=== PATIENT | male | born 1985 | race Caucasian/White ===

== ENCOUNTER 2018-12-13 19:34 | Inpatient (IN) | payer SELFPAY ==
[~2018-12-13] VITALS: Ht 172.7 cm; Wt 80.7 kg
[2018-12-13] MEDS ORDERED: LORAZEPAM 2MG/ML CPJ IV STA (22:21)
[2018-12-13] MEDS ORDERED: SODIUM CHLORIDE 0.9% 1000ML BAG (SEPSIS BOLUS) IV ONE (22:30)
[2018-12-13] MEDS ORDERED: FOLIC ACID 1 MG, THIAMINE HCL 100 MG, MVI, ADULT NO.1 10 ML in DEXTROSE 5% WATER 1,000 ML IV ONE ×4 (22:30)
[2018-12-14 00:31] LABS: CHLORIDE 111 mEq/L (98-107)
[2018-12-14 00:34] LABS: BASOPHILS % 0.6 % (0.0-2.0); EOSINOPHILS % 2.9 % (0.0-5.0); HEMATOCRIT. 40.4 % (42.0-52.0); HEMOGLOBIN. 13.7 g/dL (14.0-18.0); LYMPHOCYTES % 17.1 % (20.0-50.0); MEAN CORPUSCULAR HEMOGLOBIN 31.6 pg (28.0-32.0); MEAN PLATELET VOLUME 9.2 fl (7.4-10.4); MONOCYTES % 6.5 % (2.0-8.0); NEUTROPHILS % 72.9 % (40.0-76.0); PLATELET 141 x1000/uL (130-400); RED BLOOD CELL COUNT 4.35 mill/uL (4.7-6.1); RED CELL DISTRIBUTION WIDTH 13.4 % (11.6-14.6)
[2018-12-14 00:39] LABS: ETHANOL BLOOD < 10 mg/dL
[2018-12-14] MEDS ORDERED: DIVALPROEX SODIUM 250MG ER TABLET PO ONE (01:00)
[2018-12-14 03:30] VITALS: BP 122/67
[2018-12-14 04:00] VITALS: BP 113/69
[2018-12-14 06:00] VITALS: BP 112/72
[2018-12-14] MEDS ORDERED: LORAZEPAM 2MG/ML CPJ IV PRN (06:30)
[2018-12-14] MEDS ORDERED: ACETAMINOPHEN 325MG TABLET PO PRN (06:30)
[2018-12-14] MEDS ORDERED: GUAIFENESIN 200MG/10ML SUGAR FREE UDC PO PRN (06:30)
[2018-12-14] MEDS ORDERED: ONDANSETRON HCL 4MG/2ML INJ IV PRN (06:30)
[2018-12-14] MEDS ORDERED: HYDROMORPHONE HCL/PF 2MG/ML CPJ IV PRN (06:30)
[2018-12-14] MEDS ORDERED: MAGNESIUM/ALUMINUM HYDROXIDE/SIMETHICONE 30ML UDC PO PRN (06:30)
[2018-12-14] MEDS ORDERED: IPRATROPIUM/ALBUTEROL 0.5-3(2.5)MG/3ML NEB INH PRN (06:30)
[2018-12-14] MEDS ORDERED: HYDROCODONE/ACETAMINOPHEN 10/325MG TABLET PO PRN (06:30)
[2018-12-14] MEDS ORDERED: HYDRALAZINE 20MG/ML VIAL IV PRN (06:30)
[2018-12-14] MEDS ORDERED: NA PHOS,M-B/NA PHOS,DI-BA ENEMA 118ML PR PRN (06:30)
[2018-12-14] MEDS ORDERED: CLONIDINE 0.1MG TABLET PO PRN (06:30)
[2018-12-14] MEDS ORDERED: DIPHENHYDRAMINE 50MG/ML VIAL IV PRN (06:30)
[2018-12-14 08:00] VITALS: BP 118/65
[2018-12-14 08:05] LABS: CLARITY URINE CLEAR (CLEAR); COLOR URINE YELLOW (YELLOW); KETONES URINE NEGATIVE (NEGATIVE); LEUKOCYTE ESTERASE URINE 1+ (NEGATIVE); NITRITE URINE NEGATIVE (NEGATIVE); OCCULT BLOOD URINE NEGATIVE (NEGATIVE); PROTEIN URINE NEGATIVE (NEGATIVE); SPECIFIC GRAVITY URINE 1.017 (1.005-1.030); UROBILINOGEN URINE 0.2 E.U./dL (0.2-1.0)
[2018-12-14 08:15] LABS: *AMPHETAMINES SCREEN URINE NEGATIVE (NEGATIVE); *BARBITURATES SCREEN URINE NEGATIVE (NEGATIVE); *BENZODIAZEPINES SCREEN URINE NEGATIVE (NEGATIVE); *COCAINE SCREEN URINE NEGATIVE (NEGATIVE); METHADONE URINE SCREEN NEGATIVE (NEGATIVE)
[2018-12-14 08:16] LABS: CANNABINOID URINE SCREEN NEGATIVE (NEGATIVE); OPIATES URINE SCREEN NEGATIVE (NEGATIVE); PHENCYCLIDINE URINE SCREEN NEGATIVE (NEGATIVE)
[2018-12-14] MEDS ORDERED: DOCUSATE SODIUM 100MG CAPSULE PO PRN (09:00)
[2018-12-14] MEDS ORDERED: ENOXAPARIN 40MG/0.4ML SYR SUBCUT SCH (09:00)
[2018-12-14 09:06] VITALS: BP 113/96
[2018-12-14 10:01] VITALS: BP 137/58
[2018-12-14] MEDS ORDERED: SODIUM CHLORIDE 0.9% INJ 3ML FLUSH IVF SCH (14:00)
[2018-12-14] MEDS ORDERED: MVI, ADULT NO.1 10 ML, FOLIC ACID 1 MG, THIAMINE HCL 100 MG in SODIUM CHLORIDE 0.9% 1,0... IV SCH ×4 (21:00)
== END 2018-12-14 13:03 | disposition left against medical advice (07) | DRG 53 ==
LOC: ER 19:34 → 5EST 12-14 00:58 → EDBEDREQTM 12-14 01:00 → EDBEDREQ 12-14 01:00 → ENRESERV 12-14 02:35
PROVIDERS: ADMIT Internal Medicine; ATTEND Internal Medicine
DX: G40.89 Other seizures (principal); E86.0 Dehydration; F10.239 Alcohol dependence with withdrawal, unspecified; I10 Essential (primary) hypertension; R00.0 Tachycardia, unspecified; Z79.899 Other long term (current) drug therapy
CPT/HCPCS: 36415; 71045; 80165; 80305; 80320; 83735; 84484; 93005; 96365; 96375; 99285; J1650; J2060; J3411; J3490; J7030; J7040; J7070; G0480

== ENCOUNTER 2019-07-04 20:52 | Emergency (ER) | payer MEDICAID ==
[~2019-07-04] VITALS: Ht 172.7 cm; Wt 75.0 kg
[2019-07-04] MEDS ORDERED: HYDROCODONE/ACETAMINOPHEN 5/325MG TABLET PO STA (22:25)
[2019-07-04 23:31] LABS: EOSINOPHILS % 2.8 % (0.0-5.0); HEMATOCRIT. 34.1 % (42.0-52.0); HEMOGLOBIN. 11.7 g/dL (14.0-18.0); LYMPHOCYTES % 12.8 % (20.0-50.0); MEAN CORPUSCULAR HEMOGLOBIN 32.4 pg (28.0-32.0); MEAN CORPUSCULAR VOLUME 94.3 fL (80.0-94.0); MEAN PLATELET VOLUME 9.2 fl (7.4-10.4); MONOCYTES % 13.3 % (2.0-8.0); NEUTROPHILS % 70.1 % (40.0-76.0); PLATELET 174 x1000/uL (130-400); RED BLOOD CELL COUNT 3.61 mill/uL (4.7-6.1); RED CELL DISTRIBUTION WIDTH 13.3 % (11.6-14.6)
[2019-07-04 23:32] LABS: CHLORIDE 102 mEq/L (98-107)
[2019-07-04 23:34] LABS: CLARITY URINE CLEAR (CLEAR); COLOR URINE DARK YELLOW (YELLOW); KETONES URINE TRACE (NEGATIVE); LEUKOCYTE ESTERASE URINE NEGATIVE (NEGATIVE); NITRITE URINE NEGATIVE (NEGATIVE); OCCULT BLOOD URINE NEGATIVE (NEGATIVE); PH URINE 5.5 (4.5-8.0); PROTEIN URINE TRACE (NEGATIVE); SPECIFIC GRAVITY URINE 1.025 (1.005-1.030)
[2019-07-04 23:35] LABS: ETHANOL BLOOD < 10 mg/dL
[2019-07-04] MEDS ORDERED: CHLORDIAZEPOXIDE 25MG CAPSULE PO ONE (23:45)
[2019-07-04 23:47] LABS: *BARBITURATES SCREEN URINE NEGATIVE (NEGATIVE)
[2019-07-04 23:48] LABS: *AMPHETAMINES SCREEN URINE PRESUMTIVE POSITIVE (NEGATIVE); *BENZODIAZEPINES SCREEN URINE NEGATIVE (NEGATIVE); *COCAINE SCREEN URINE PRESUMTIVE POSITIVE (NEGATIVE); METHADONE URINE SCREEN NEGATIVE (NEGATIVE); OPIATES URINE SCREEN NEGATIVE (NEGATIVE); PHENCYCLIDINE URINE SCREEN NEGATIVE (NEGATIVE)
[2019-07-04 23:49] LABS: CANNABINOID URINE SCREEN PRESUMTIVE POSITIVE (NEGATIVE)
[2019-07-05] MEDS ORDERED: CHLORDIAZEPOXIDE 10MG CAPSULE PO NR (00:01)
[2019-07-05 16:03] VITALS: BP 122/78
== END 2019-07-05 14:00 | disposition home or self-care (01) ==
LOC: ER 20:52
DX: E83.51 Hypocalcemia (principal); M25.511 Pain in right shoulder; S40.212A Abrasion of left shoulder, initial encounter; M79.672 Pain in left foot; X58.XXXA Exposure to other specified factors, initial encounter; Y93.9 Activity, unspecified; Y92.89 Other specified places as the place of occurrence of the external cause; Y92.9 Unspecified place or not applicable; T40.5X1A Poisoning by cocaine, accidental (unintentional), initial encounter; F14.19 Cocaine abuse with unspecified cocaine-induced disorder; T43.621A Poisoning by amphetamines, accidental (unintentional), initial encounter; F15.19 Other stimulant abuse with unspecified stimulant-induced disorder; F12.10 Cannabis abuse, uncomplicated
CPT/HCPCS: 36415; 73030; 73630; 80048; 80305; 80307; 80320; 80329; 81003; 99284; G0480

== ENCOUNTER 2020-09-09 19:30 | Emergency (ER) | payer MEDICAID ==
[~2020-09-09] VITALS: Ht 165.1 cm; Wt 71.0 kg
[2020-09-09 20:30] LABS: CHLORIDE 108 mEq/L (98-107)
[2020-09-09 20:34] LABS: ETHANOL BLOOD < 10 mg/dL
[2020-09-10 00:30] VITALS: BP 119/73
== END 2020-09-10 00:48 | disposition home or self-care (01) ==
LOC: ER 19:30
DX: R07.89 Other chest pain (principal); F10.239 Alcohol dependence with withdrawal, unspecified; M79.672 Pain in left foot; M79.671 Pain in right foot; Z98.890 Other specified postprocedural states; Y90.0 Blood alcohol level of less than 20 mg/100 ml
CPT/HCPCS: 36415; 71045; 80048; 80076; 80320; 84484; 93005; 99285; G0480

== ENCOUNTER 2022-02-21 19:30 | Emergency (ER) | payer MEDICAID ==
[~2022-02-21] VITALS: Ht 167.6 cm; Wt 66.0 kg
[2022-02-21 19:36] VITALS: BP 128/83
[2022-02-22] MEDS ORDERED: DIVA250T4 MT (11:25)
[2022-02-23] MEDS ORDERED: TOPUD PO (01:31)
[2022-02-23] MEDS ORDERED: IBUP-2028 MT (01:31)
== END 2022-02-22 01:39 | disposition home or self-care (01) ==
LOC: EDBD → ER 19:30
DX: F15.188 Other stimulant abuse with other stimulant-induced disorder (principal)
CPT/HCPCS: 99283

== ENCOUNTER 2022-02-22 06:27 | Emergency (ER) | payer MEDICAID ==
[~2022-02-22] VITALS: Ht 170.2 cm; Wt 73.0 kg
[2022-02-22] MEDS ORDERED: IBUPROFEN 400MG TABLET PO ONE (08:30)
[2022-02-22 10:03] LABS: BASOPHILS % 1.2 % (0.0-2.0); EOSINOPHILS % 4.1 % (0.0-5.0); HEMATOCRIT. 39.3 % (42.0-52.0); HEMOGLOBIN. 13.3 g/dL (14.0-18.0); LYMPHOCYTES % 14.8 % (20.0-50.0); MEAN CORPUSCULAR HEMOGLOBIN 32.5 pg (28.0-32.0); MEAN CORPUSCULAR VOLUME 96.1 fL (80.0-94.0); MEAN PLATELET VOLUME 8.4 fl (7.4-10.4); MONOCYTES % 10.7 % (2.0-8.0); NEUTROPHILS % 69.2 % (40.0-76.0); PLATELET 179 x1000/uL (130-400); RED BLOOD CELL COUNT 4.09 mill/uL (4.7-6.1); RED CELL DISTRIBUTION WIDTH 14.4 % (11.6-14.6)
[2022-02-22 10:06] LABS: CHLORIDE 107 mEq/L (98-107)
[2022-02-22 10:13] LABS: ETHANOL BLOOD < 10 mg/dL
[2022-02-22 10:41] LABS: *AMPHETAMINES SCREEN URINE PRESUMTIVE POSITIVE (NEGATIVE); *BARBITURATES SCREEN URINE NEGATIVE (NEGATIVE); *BENZODIAZEPINES SCREEN URINE NEGATIVE (NEGATIVE); *COCAINE SCREEN URINE NEGATIVE (NEGATIVE); CANNABINOID URINE SCREEN PRESUMTIVE POSITIVE (NEGATIVE); METHADONE URINE SCREEN NEGATIVE (NEGATIVE); OPIATES URINE SCREEN NEGATIVE (NEGATIVE); PHENCYCLIDINE URINE SCREEN NEGATIVE (NEGATIVE)
[2022-02-22 11:16] LABS: VALPROIC ACID < 3.0 ug/mL (50-100)
[2022-02-22] MEDS ORDERED: DIVA250T4 MT (11:25)
[2022-02-22] MEDS ORDERED: DIVALPROEX SODIUM 250MG ER TABLET PO ONE (11:30)
[2022-02-22 12:07] VITALS: BP 127/75
[2022-02-23] MEDS ORDERED: IBUP-2028 MT (01:31)
[2022-02-23] MEDS ORDERED: TOPUD PO (01:31)
== END 2022-02-22 12:08 | disposition home or self-care (01) ==
LOC: EDBD → ER 06:27
DX: G40.909 Epilepsy, unspecified, not intractable, without status epilepticus (principal); M79.18 Myalgia, other site; E83.51 Hypocalcemia; F15.10 Other stimulant abuse, uncomplicated; F16.10 Hallucinogen abuse, uncomplicated; F12.10 Cannabis abuse, uncomplicated
CPT/HCPCS: 36415; 80053; 80165; 80305; 80320; 85025; 99283; G0480

== ENCOUNTER 2022-02-22 21:53 | Emergency (ER) | payer MEDICAID ==
[~2022-02-22] VITALS: Ht 180.3 cm; Wt 82.0 kg
[~2022-02-22 21:53] MED LIST: DIVA250T4 MT
[2022-02-23] MEDS ORDERED: ACETAMINOPHEN 325MG TABLET PO ONE (00:45)
[2022-02-23] MEDS ORDERED: GABAPENTIN 100MG CAPSULE PO SCH (00:45)
[2022-02-23] MEDS ORDERED: KETOROLAC 60MG/2ML VIAL IM ONE (00:45)
[2022-02-23] MEDS ORDERED: TOPUD PO (01:31)
[2022-02-23] MEDS ORDERED: IBUP-2028 MT (01:31)
[2022-02-23 02:07] VITALS: BP 125/78
== END 2022-02-23 02:07 | disposition home or self-care (01) ==
LOC: EDBD → ER 21:53
DX: M79.672 Pain in left foot (principal); M79.671 Pain in right foot
CPT/HCPCS: 96372; 99283; J1885

== ENCOUNTER 2022-02-24 21:43 | Inpatient (IN) | payer MEDICAID, OTHER ==
[~2022-02-24] VITALS: Ht 188 cm; Wt 71.7 kg
[~2022-02-24 21:43] MED LIST changes: +IBUP-2028 MT; +TOPUD PO
[2022-02-25 01:35] LABS: BASOPHILS % 0.6 % (0.0-2.0); EOSINOPHILS % 4.3 % (0.0-5.0); HEMATOCRIT. 36.6 % (42.0-52.0); HEMOGLOBIN. 12.4 g/dL (14.0-18.0); LYMPHOCYTES % 19.1 % (20.0-50.0); MEAN CORPUSCULAR VOLUME 97.3 fL (80.0-94.0); MEAN PLATELET VOLUME 8.5 fl (7.4-10.4); MONOCYTES % 9.9 % (2.0-8.0); NEUTROPHILS % 66.1 % (40.0-76.0); PLATELET 157 x1000/uL (130-400); RED BLOOD CELL COUNT 3.76 mill/uL (4.7-6.1); RED CELL DISTRIBUTION WIDTH 14.5 % (11.6-14.6)
[2022-02-25 01:44] LABS: CHLORIDE 111 mEq/L (98-107)
[2022-02-25 01:51] LABS: ETHANOL BLOOD < 10 mg/dL
[2022-02-25] MEDS ORDERED: CALCIUM GLUCONATE 1GM PREMIX 50 ML IV ONE (02:15)
[2022-02-25 02:43] LABS: PHOSPHORUS 5.5 mg/dL (2.5-4.9)
[2022-02-25] MEDS ORDERED: KETOROLAC 15MG/ML VIAL IV ONE (02:45)
[2022-02-25] MEDS ORDERED: SODIUM CHLORIDE 0.9% 1,000 ML IV ONE (03:30)
[2022-02-25 12:00] VITALS: BP 120/84
[2022-02-25] MEDS ORDERED: CLONIDINE 0.1MG TABLET PO PRN (13:30)
[2022-02-25] MEDS ORDERED: ACETAMINOPHEN 325MG TABLET PO PRN ×2 (13:30)
[2022-02-25] MEDS ORDERED: MAGNESIUM/ALUMINUM HYDROXIDE/SIMETHICONE 30ML UDC PO PRN (13:30)
[2022-02-25] MEDS ORDERED: DOCUSATE SODIUM 100MG CAPSULE PO PRN (13:30)
[2022-02-25] MEDS: SODIUM CHLORIDE 0.9% 1,000 ML IV SCH (13:59)
[2022-02-25] MEDS ORDERED: ENOXAPARIN 40MG/0.4ML SYR SUBCUT SCH (14:00)
[2022-02-25] MEDS: SODIUM CHLORIDE 0.9% INJ 3ML FLUSH IVF SCH ×2 (14:19→21:36)
[2022-02-25 16:00] VITALS: BP 100/66
[2022-02-25 16:27] VITALS: BP 120/84
[2022-02-25] MEDS: DIVALPROEX SODIUM 250MG DR TABLET PO SCH (17:40)
[2022-02-25] MEDS ORDERED: CALCIUM GLUCONATE 1GM PREMIX 50 ML IV NR (19:30)
[2022-02-25 20:00] VITALS: BP 99/57
[2022-02-26] VITALS: BP 133/73
[2022-02-26 00:27] LABS: CREATINE KINASE 265 IU/L (39-308); CREATINE KINASE MB FRACTION < 1.0 ng/mL (0.5-3.6)
[2022-02-26 04:00] VITALS: BP 128/79
[2022-02-26 05:58] LABS: BASOPHILS % 1.1 % (0.0-2.0); EOSINOPHILS % 6.5 % (0.0-5.0); HEMATOCRIT. 39.1 % (42.0-52.0); HEMOGLOBIN. 13.3 g/dL (14.0-18.0); LYMPHOCYTES % 28.2 % (20.0-50.0); MEAN CORPUSCULAR HEMOGLOBIN 32.7 pg (28.0-32.0); MEAN CORPUSCULAR VOLUME 96.3 fL (80.0-94.0); MONOCYTES % 9.7 % (2.0-8.0); NEUTROPHILS % 54.5 % (40.0-76.0); PLATELET 145 x1000/uL (130-400); RED BLOOD CELL COUNT 4.07 mill/uL (4.7-6.1); RED CELL DISTRIBUTION WIDTH 14.7 % (11.6-14.6)
[2022-02-26 06:07] LABS: CHLORIDE 105 mEq/L (98-107)
[2022-02-26 06:16] LABS: CREATINE KINASE 240 IU/L (39-308); PHOSPHORUS 4.6 mg/dL (2.5-4.9)
[2022-02-26] MEDS: SODIUM CHLORIDE 0.9% INJ 3ML FLUSH IVF SCH (06:39)
[2022-02-26] MEDS ORDERED: CALCIUM GLUCONATE 2,000 MG in DEXT 5% WATER 100 ML IV SCH (07:00)
[2022-02-26] MEDS ORDERED: CALCIUM GLUCONATE 100MG/ML 10ML VIAL IV ONE (07:00)
[2022-02-26] MEDS ORDERED: OMEPRAZOLE 20MG CAPSULE EXTENDED RELEASE PO SCH (07:20)
[2022-02-26 08:00] VITALS: BP 108/72
[2022-02-26] MEDS: DIVALPROEX SODIUM 250MG DR TABLET PO SCH (10:29)
[2022-02-26] MEDS: SODIUM CHLORIDE 0.9% 1,000 ML IV SCH (10:30)
== END 2022-02-26 12:25 | disposition left against medical advice (07) | DRG 425 ==
LOC: EDBD → ER 21:43 → 6EST 02-25 03:19 → ENRESERV 02-25 12:17
PROVIDERS: ADMIT Internal Medicine; ATTEND Internal Medicine
DX: E83.51 Hypocalcemia (principal); F15.90 Other stimulant use, unspecified, uncomplicated; Z20.822 Contact with and (suspected) exposure to COVID-19; R74.8 Abnormal levels of other serum enzymes; F17.210 Nicotine dependence, cigarettes, uncomplicated; Z53.29 Procedure and treatment not carried out because of patient's decision for other reasons; Z79.899 Other long term (current) drug therapy
CPT/HCPCS: 36415; 80048; 80053; 80320; 82330; 82550; 82553; 83605; 83735; 84100; 84443; 85025; 87426; 93005; 99285; C9803; J0610; J1650; J1885; J7030; J7060; G0480

== ENCOUNTER 2022-02-26 15:12 | Emergency (ER) | payer MEDICAID ==
[~2022-02-26] VITALS: Ht 175.3 cm; Wt 73.0 kg
[2022-02-26 16:43] LABS: CLARITY URINE CLEAR (CLEAR); COLOR URINE YELLOW (YELLOW); KETONES URINE NEGATIVE (NEGATIVE); LEUKOCYTE ESTERASE URINE NEGATIVE (NEGATIVE); NITRITE URINE NEGATIVE (NEGATIVE); OCCULT BLOOD URINE NEGATIVE (NEGATIVE); PROTEIN URINE NEGATIVE (NEGATIVE); SPECIFIC GRAVITY URINE 1.014 (1.005-1.030); UROBILINOGEN URINE 0.2 E.U./dL (0.2-1.0)
[2022-02-26 16:46] LABS: HEMATOCRIT. 43.3 % (42.0-52.0); HEMOGLOBIN. 14.6 g/dL (14.0-18.0); MEAN CORPUSCULAR HEMOGLOBIN 32.8 pg (28.0-32.0); MEAN CORPUSCULAR VOLUME 97.3 fL (80.0-94.0); MEAN PLATELET VOLUME 9.2 fl (7.4-10.4); PLATELET 184 x1000/uL (130-400); RED BLOOD CELL COUNT 4.45 mill/uL (4.7-6.1); RED CELL DISTRIBUTION WIDTH 14.8 % (11.6-14.6)
[2022-02-26 16:55] LABS: CHLORIDE 103 mEq/L (98-107)
[2022-02-26 17:02] LABS: ETHANOL BLOOD < 10 mg/dL
[2022-02-26 17:03] LABS: *AMPHETAMINES SCREEN URINE NEGATIVE (NEGATIVE); *BARBITURATES SCREEN URINE NEGATIVE (NEGATIVE); *BENZODIAZEPINES SCREEN URINE NEGATIVE (NEGATIVE); *COCAINE SCREEN URINE NEGATIVE (NEGATIVE); CANNABINOID URINE SCREEN PRESUMTIVE POSITIVE (NEGATIVE); METHADONE URINE SCREEN NEGATIVE (NEGATIVE); OPIATES URINE SCREEN NEGATIVE (NEGATIVE); PHENCYCLIDINE URINE SCREEN NEGATIVE (NEGATIVE)
[2022-02-26 17:44] LABS: PLATELET ESTIMATE NORMAL
[2022-02-27 09:22] VITALS: BP 115/91
== END 2022-02-27 12:16 | disposition home or self-care (01) ==
LOC: ER 15:26
DX: R45.850 Homicidal ideations (principal); F12.90 Cannabis use, unspecified, uncomplicated; R03.0 Elevated blood-pressure reading, without diagnosis of hypertension; G40.909 Epilepsy, unspecified, not intractable, without status epilepticus
CPT/HCPCS: 36415; 80048; 80305; 80307; 80320; 80329; 81003; 85025; 99285; G0480

== ENCOUNTER 2023-01-09 13:09 | Emergency (ER) | payer MEDICAID ==
[~2023-01-09] VITALS: Ht 175.3 cm; Wt 68.0 kg
[2023-01-09 13:16] VITALS: BP 144/87
== END 2023-01-09 17:21 | disposition left against medical advice (07) ==
LOC: ER 14:16
DX: Z53.21 Procedure and treatment not carried out due to patient leaving prior to being seen by health care provider (principal)
CPT/HCPCS: 99281

== ENCOUNTER 2024-06-11 18:35 | Emergency (ER) | payer MEDICAID, OTHER ==
[~2024-06-11] VITALS: Ht 167.6 cm; Wt 75.0 kg
[~2024-06-11 18:35] MED LIST changes: +CEPH500C2 MT
[2024-06-11 18:39] VITALS: BP 116/76; PULSE 84; RESP 18; TEMP 98.4; O2SAT 98
[2024-06-11 20:47] LABS: CHLORIDE 105 mEq/L (98-107); POTASSIUM 3.3 mEq/L (3.5-5.1); SODIUM 146 mEq/L (136-145)
[2024-06-11 20:48] LABS: BASOPHILS % 1.5 % (0.0-2.0); CALCIUM 6.5 mg/dL (8.7-10.4); CARBON DIOXIDE 30 mEq/L (21-32); DIFFERENTIAL COMMENT 0; EOSINOPHILS % 5.7 % (0.0-5.0); HEMATOCRIT. 43.5 % (42.0-52.0); HEMOGLOBIN. 14.5 g/dL (14.0-18.0); LYMPHOCYTES % 18.2 % (20.0-50.0); MEAN CORPUSCULAR HEMOGLOBIN 34.8 pg (28.0-32.0); MEAN CORPUSCULAR HGB CONC 33.4 g/dL (31.0-37.0); MEAN CORPUSCULAR VOLUME 104.3 fL (80.0-94.0); MEAN PLATELET VOLUME 8.9 fl (7.4-10.4); MONOCYTES % 11.8 % (2.0-8.0); NEUTROPHILS % 62.8 % (40.0-76.0); PLATELET 205 x1000/uL (130-400); RED BLOOD CELL COUNT 4.17 mill/uL (4.7-6.1); RED CELL DISTRIBUTION WIDTH 14.6 % (11.6-14.6); WHITE BLOOD COUNT 5.6 x1000/uL (4.5-11.0)
[2024-06-11 20:53] LABS: CREATININE 0.8 mg/dL (0.6-1.3); ETHANOL BLOOD 273 mg/dL (<10); GLUCOSE 94 mg/dL (70-105); UREA NITROGEN BLOOD 11 mg/dL (9-23)
[2024-06-11 20:55] LABS: ALANINE AMINOTRANSFERASE 50 IU/L (10-49); ASPARTATE AMINOTRANSFERASE 99 IU/L (<34); BILIRUBIN TOTAL 0.2 mg/dL (0.1-1.0); PROTEIN TOTAL 6.9 g/dL (6.0-8.3)
[2024-06-11 21:02] LABS: BILIRUBIN DIRECT < 0.1 mg/dL (<=3.0)
[2024-06-11] MEDS ORDERED: POTASSIUM CHLORIDE 20MEQ TABLET SR PO ONE (22:30)
[2024-06-12] MEDS: POTASSIUM CHLORIDE 20MEQ TABLET SR PO NR (02:26)
== END 2024-06-12 03:05 | disposition home or self-care (01) ==
LOC: ER 18:35
DX: G92.9 Unspecified toxic encephalopathy (principal)
CPT/HCPCS: 36415; 80048; 80076; 80320; 85025; 99284; G0480

== ENCOUNTER 2025-02-15 21:56 | Emergency (ER) | payer MEDICAID ==
[~2025-02-15] VITALS: Ht 175.3 cm; Wt 70.0 kg
[2025-02-15 21:58] VITALS: TEMP 36.7; O2SAT 94
[2025-02-15 23:18] LABS: BASOPHILS % 0.9 % (0.0-2.0); EOSINOPHILS % 7.4 % (0.0-5.0); HEMATOCRIT. 35.8 % (42.0-52.0); HEMOGLOBIN. 11.7 g/dL (14.0-18.0); LYMPHOCYTES % 19.5 % (20.0-50.0); MEAN PLATELET VOLUME 8.6 fl (7.4-10.4); MONOCYTES % 12.6 % (2.0-8.0); NEUTROPHILS % 59.6 % (40.0-76.0); PLATELET 153 x1000/uL (130-400); RED BLOOD CELL COUNT 3.62 mill/uL (4.7-6.1); RED CELL DISTRIBUTION WIDTH 16.2 % (11.6-14.6)
[2025-02-15] MEDS: SODIUM CHLORIDE 0.9% 1,000 ML IV ONE (23:29)
[2025-02-15 23:33] LABS: CREATININE 1.1 mg/dL (0.6-1.3); UREA NITROGEN BLOOD 12 mg/dL (9-23)
[2025-02-15 23:34] LABS: ETHANOL BLOOD 259 mg/dL (<10)
[2025-02-15 23:35] LABS: ASPARTATE AMINOTRANSFERASE 23 IU/L (<34); BILIRUBIN DIRECT < 0.1 mg/dL (<=3.0); BILIRUBIN TOTAL < 0.2 mg/dL (0.1-1.0)
[2025-02-15 23:36] LABS: PROTEIN TOTAL 6.4 g/dL (6.0-8.3)
[2025-02-16] MEDS: FOLIC ACID 1 MG, THIAMINE HCL 100 MG, MVI, ADULT NO.1 10 ML in DEXTROSE 5% WATER 1,000 ML IV ONE (00:58)
[2025-02-16 05:07] VITALS: BP 108/66; PULSE 100; RESP 19; O2SAT 96
== END 2025-02-16 05:10 | disposition home or self-care (01) ==
LOC: ER 21:56
DX: F10.129 Alcohol abuse with intoxication, unspecified (principal); E86.0 Dehydration; F19.90 Other psychoactive substance use, unspecified, uncomplicated; Z79.899 Other long term (current) drug therapy; Z59.00 Homelessness unspecified; Y90.8 Blood alcohol level of 240 mg/100 ml or more
CPT/HCPCS: 80076; 80048; 80307; 80329; 80320; 85025; 36415; 96361; 99285; 96365; 96366; J7030; Z7610; J3490 ×2; J3411; J7070; G0480

== ENCOUNTER 2025-02-16 05:33 | Emergency (ER) | payer MEDICAID ==
[~2025-02-16] VITALS: Ht 175.3 cm; Wt 69.0 kg
[2025-02-16 05:58] VITALS: O2SAT 100
[2025-02-16 07:15] VITALS: BP 136/78; PULSE 92; RESP 18; TEMP 36.9; O2SAT 97
== END 2025-02-16 07:25 | disposition home or self-care (01) ==
LOC: ER 05:33
DX: Z00.8 Encounter for other general examination (principal); F10.90 Alcohol use, unspecified, uncomplicated; Y90.9 Presence of alcohol in blood, level not specified; Z79.899 Other long term (current) drug therapy
CPT/HCPCS: 99282

== ENCOUNTER 2025-02-16 22:28 | Emergency (ER) | payer MEDICAID ==
[~2025-02-16] VITALS: Ht 182.9 cm; Wt 95.0 kg
[2025-02-16] MEDS: SODIUM CHLORIDE 0.9% 1,000 ML IV ONE (00:50)
[2025-02-16 22:50] VITALS: BP 108/70; PULSE 113; RESP 18; TEMP 36.9; O2SAT 96
[2025-02-17 02:28] LABS: CLARITY URINE CLEAR (CLEAR); COLOR URINE YELLOW (YELLOW); GLUCOSE URINE NEGATIVE (NEGATIVE); KETONES URINE NEGATIVE (NEGATIVE); LEUKOCYTE ESTERASE URINE NEGATIVE (NEGATIVE); NITRITE URINE NEGATIVE (NEGATIVE); OCCULT BLOOD URINE NEGATIVE (NEGATIVE); PH URINE 5.5 (4.5-8.0); PROTEIN URINE NEGATIVE (NEGATIVE); SPECIFIC GRAVITY URINE 1.022 (1.005-1.030); UROBILINOGEN URINE 0.2 E.U./dL (0.2-1.0)
[2025-02-17 02:29] LABS: BASOPHILS % 0.9 % (0.0-2.0); EOSINOPHILS % 7.5 % (0.0-5.0); HEMATOCRIT. 39.0 % (42.0-52.0); HEMOGLOBIN. 13.0 g/dL (14.0-18.0); LYMPHOCYTES % 20.7 % (20.0-50.0); MEAN PLATELET VOLUME 9.1 fl (7.4-10.4); MONOCYTES % 11.0 % (2.0-8.0); NEUTROPHILS % 59.9 % (40.0-76.0); PLATELET 152 x1000/uL (130-400); RED BLOOD CELL COUNT 3.92 mill/uL (4.7-6.1); RED CELL DISTRIBUTION WIDTH 16.5 % (11.6-14.6)
[2025-02-17 02:43] LABS: CREATININE 0.8 mg/dL (0.6-1.3); UREA NITROGEN BLOOD 11 mg/dL (9-23)
[2025-02-17 02:44] LABS: ETHANOL BLOOD 131 mg/dL (<10)
[2025-02-17 02:47] LABS: *AMPHETAMINES SCREEN URINE NEGATIVE (NEGATIVE); *BARBITURATES SCREEN URINE NEGATIVE (NEGATIVE); *BENZODIAZEPINES SCREEN URINE PRESUMPTIVE POSITIVE (NEGATIVE); *COCAINE SCREEN URINE NEGATIVE (NEGATIVE); CANNABINOID URINE SCREEN PRESUMPTIVE POSITIVE (NEGATIVE); ECSTASY MDMA SCREEN URINE NEGATIVE (NEGATIVE); METHADONE URINE SCREEN NEGATIVE (NEGATIVE); OPIATES URINE SCREEN NEGATIVE (NEGATIVE); PHENCYCLIDINE URINE SCREEN NEGATIVE (NEGATIVE)
[2025-02-17] MEDS: SODIUM CHLORIDE 0.9% 1,000 ML IV ONE (05:48)
== END 2025-02-17 07:35 | disposition home or self-care (01) ==
LOC: ER 22:28
DX: F10.229 Alcohol dependence with intoxication, unspecified (principal); Z79.899 Other long term (current) drug therapy; Y90.9 Presence of alcohol in blood, level not specified
CPT/HCPCS: 36415; 96360; 99283; 80305; 80048; 81003; 80320; 85025; 96361; J7030 ×2; G0480

== ENCOUNTER 2025-02-17 07:47 | Emergency (ER) | payer MEDICAID ==
[~2025-02-17] VITALS: Ht 175.3 cm; Wt 68.0 kg
[2025-02-17 07:53] VITALS: O2SAT 96
[2025-02-17 07:58] VITALS: BP 148/93; PULSE 107; RESP 19; TEMP 36.6; O2SAT 96
== END 2025-02-17 09:30 | disposition home or self-care (01) ==
LOC: ER 07:47
DX: F10.129 Alcohol abuse with intoxication, unspecified (principal); Y90.9 Presence of alcohol in blood, level not specified
CPT/HCPCS: 99282; 99283

== ENCOUNTER 2025-02-23 13:58 | Emergency (ER) | payer MEDICAID ==
[~2025-02-23] VITALS: Ht 170.2 cm; Wt 75.0 kg
[2025-02-23 14:01] VITALS: BP 118/87; PULSE 80; RESP 16; TEMP 36.8; O2SAT 97
[2025-02-23] MEDS ORDERED: CHLORDIAZEPOXIDE 25MG CAPSULE PO ONE (14:30)
[2025-02-23 15:44] LABS: BASOPHILS % 1.2 % (0.0-2.0); EOSINOPHILS % 2.1 % (0.0-5.0); HEMATOCRIT. 39.3 % (42.0-52.0); HEMOGLOBIN. 13.4 g/dL (14.0-18.0); LYMPHOCYTES % 10.7 % (20.0-50.0); MEAN PLATELET VOLUME 9.7 fl (7.4-10.4); MONOCYTES % 13.4 % (2.0-8.0); NEUTROPHILS % 72.6 % (40.0-76.0); PLATELET 139 x1000/uL (130-400); RED BLOOD CELL COUNT 3.99 mill/uL (4.7-6.1); RED CELL DISTRIBUTION WIDTH 15.4 % (11.6-14.6)
[2025-02-23 16:04] LABS: CREATININE 0.9 mg/dL (0.6-1.3)
[2025-02-23 16:05] LABS: ETHANOL BLOOD < 10 mg/dL (<10); UREA NITROGEN BLOOD 13 mg/dL (9-23)
== END 2025-02-23 16:16 | disposition left against medical advice (07) ==
LOC: ER 13:58
DX: F10.939 Alcohol use, unspecified with withdrawal, unspecified (principal); G40.909 Epilepsy, unspecified, not intractable, without status epilepticus; Z59.00 Homelessness unspecified; Z79.899 Other long term (current) drug therapy; Y90.9 Presence of alcohol in blood, level not specified
CPT/HCPCS: 36415; 80048; 80320; 85025; 99283; G0480

== ENCOUNTER 2025-02-23 21:20 | Emergency (ER) | payer MEDICAID ==
[~2025-02-23] VITALS: Ht 172.7 cm; Wt 77.0 kg
[2025-02-23 21:26] VITALS: TEMP 36.7; O2SAT 98
[2025-02-23 23:11] LABS: BASOPHILS % 1.4 % (0.0-2.0); EOSINOPHILS % 4.0 % (0.0-5.0); HEMATOCRIT. 39.4 % (42.0-52.0); HEMOGLOBIN. 13.2 g/dL (14.0-18.0); LYMPHOCYTES % 16.6 % (20.0-50.0); MEAN PLATELET VOLUME 8.6 fl (7.4-10.4); MONOCYTES % 12.2 % (2.0-8.0); NEUTROPHILS % 65.8 % (40.0-76.0); PLATELET 177 x1000/uL (130-400); RED BLOOD CELL COUNT 3.99 mill/uL (4.7-6.1); RED CELL DISTRIBUTION WIDTH 15.6 % (11.6-14.6)
[2025-02-23 23:32] LABS: CREATININE 0.9 mg/dL (0.6-1.3); UREA NITROGEN BLOOD 10 mg/dL (9-23)
[2025-02-23 23:33] LABS: ETHANOL BLOOD 243 mg/dL (<10)
[2025-02-23 23:34] LABS: ASPARTATE AMINOTRANSFERASE 24 IU/L (<34); BILIRUBIN DIRECT < 0.1 mg/dL (<=3.0)
[2025-02-23 23:35] LABS: BILIRUBIN TOTAL 0.3 mg/dL (0.1-1.0); PROTEIN TOTAL 7.5 g/dL (6.0-8.3)
[2025-02-24] MEDS: POTASSIUM CHLORIDE 20MEQ TABLET SR PO ONE (00:46)
[2025-02-24 01:29] VITALS: BP 118/54; PULSE 90; RESP 12; O2SAT 95
== END 2025-02-24 01:48 | disposition home or self-care (01) ==
LOC: ER 21:35
DX: G92.9 Unspecified toxic encephalopathy (principal); F10.129 Alcohol abuse with intoxication, unspecified; I67.82 Cerebral ischemia; Y90.9 Presence of alcohol in blood, level not specified
CPT/HCPCS: 36415; 80048; 80076; 80320; 85025; 99284; G0480

== ENCOUNTER 2025-02-26 19:18 | Emergency (ER) | payer MEDICAID ==
[~2025-02-26] VITALS: Ht 167.6 cm; Wt 79.0 kg
[~2025-02-26 19:18] MED LIST changes: +DIVA-156 MT; -DIVA250T4 MT
[2025-02-26 19:21] VITALS: O2SAT 97
[2025-02-26] MEDS: CHLORDIAZEPOXIDE 25MG CAPSULE PO ONE (20:10)
[2025-02-26 20:12] LABS: BASOPHILS % 0.7 % (0.0-2.0); EOSINOPHILS % 2.1 % (0.0-5.0); HEMATOCRIT. 37.6 % (42.0-52.0); HEMOGLOBIN. 12.4 g/dL (14.0-18.0); LYMPHOCYTES % 7.4 % (20.0-50.0); MEAN PLATELET VOLUME 8.8 fl (7.4-10.4); MONOCYTES % 12.8 % (2.0-8.0); NEUTROPHILS % 77.0 % (40.0-76.0); PLATELET 157 x1000/uL (130-400); RED BLOOD CELL COUNT 3.84 mill/uL (4.7-6.1); RED CELL DISTRIBUTION WIDTH 15.5 % (11.6-14.6)
[2025-02-26 20:23] LABS: INR 1.0
[2025-02-26 20:25] LABS: CREATININE 0.9 mg/dL (0.6-1.3)
[2025-02-26 20:26] LABS: *AMPHETAMINES SCREEN URINE NEGATIVE (NEGATIVE); ETHANOL BLOOD < 10 mg/dL (<10); UREA NITROGEN BLOOD 11 mg/dL (9-23)
[2025-02-26 20:27] LABS: *BARBITURATES SCREEN URINE NEGATIVE (NEGATIVE); *BENZODIAZEPINES SCREEN URINE NEGATIVE (NEGATIVE); *COCAINE SCREEN URINE NEGATIVE (NEGATIVE); ASPARTATE AMINOTRANSFERASE 25 IU/L (<34); CANNABINOID URINE SCREEN PRESUMPTIVE POSITIVE (NEGATIVE); ECSTASY MDMA SCREEN URINE NEGATIVE (NEGATIVE); METHADONE URINE SCREEN NEGATIVE (NEGATIVE); OPIATES URINE SCREEN NEGATIVE (NEGATIVE); PHENCYCLIDINE URINE SCREEN NEGATIVE (NEGATIVE)
[2025-02-26 20:28] LABS: BILIRUBIN DIRECT < 0.1 mg/dL (<=3.0); BILIRUBIN TOTAL 0.3 mg/dL (0.1-1.0); PROTEIN TOTAL 7.4 g/dL (6.0-8.3)
[2025-02-26 21:36] VITALS: BP 130/85; PULSE 92; RESP 16; TEMP 36.6; O2SAT 98
[2025-02-27] MEDS ORDERED: IBUP-2028 MT (00:42)
== END 2025-02-26 21:37 | disposition home or self-care (01) ==
LOC: ER 19:18
DX: F10.139 Alcohol abuse with withdrawal, unspecified (principal); J45.909 Unspecified asthma, uncomplicated; F12.90 Cannabis use, unspecified, uncomplicated; Z79.899 Other long term (current) drug therapy; R42 Dizziness and giddiness; R07.9 Chest pain, unspecified; Z98.890 Other specified postprocedural states; Y90.9 Presence of alcohol in blood, level not specified
CPT/HCPCS: 80076; 80305; 80048; 80320; 83735; 85025; 85610; 85730; 36415; 99283; Z7610; G0480

== ENCOUNTER 2025-02-26 23:33 | Emergency (ER) | payer MEDICAID ==
[~2025-02-26] VITALS: Ht 175.3 cm; Wt 70.0 kg
[2025-02-26 23:36] VITALS: O2SAT 98
[2025-02-27 00:04] VITALS: BP 99/55; PULSE 100; RESP 18; TEMP 36.9; O2SAT 100
[2025-02-27] MEDS ORDERED: IBUP-2028 MT (00:42)
[2025-02-27] MEDS: ACETAMINOPHEN 500MG TABLET PO ONE (01:03)
== END 2025-02-27 06:00 | disposition home or self-care (01) ==
LOC: ER 23:33
DX: M79.10 Myalgia, unspecified site (principal); F12.10 Cannabis abuse, uncomplicated; J45.909 Unspecified asthma, uncomplicated; Z59.00 Homelessness unspecified; Z79.899 Other long term (current) drug therapy
CPT/HCPCS: 99282

== ENCOUNTER 2025-02-27 19:51 | Emergency (ER) | payer MEDICAID ==
[~2025-02-27] VITALS: Ht 172.7 cm; Wt 87.0 kg
[2025-02-27 20:03] VITALS: O2SAT 96
[2025-02-28 02:57] VITALS: BP 114/63; PULSE 111; RESP 14; TEMP 36.8; O2SAT 95
== END 2025-02-28 03:00 | disposition home or self-care (01) ==
LOC: ER 19:51
DX: F10.129 Alcohol abuse with intoxication, unspecified (principal); Z79.899 Other long term (current) drug therapy; J45.909 Unspecified asthma, uncomplicated; F12.90 Cannabis use, unspecified, uncomplicated; Z59.00 Homelessness unspecified; Y90.9 Presence of alcohol in blood, level not specified
CPT/HCPCS: 99283

== ENCOUNTER 2025-02-28 03:32 | Emergency (ER) | payer MEDICAID ==
[~2025-02-28] VITALS: Ht 175.3 cm; Wt 71.0 kg
[2025-02-28 04:45] VITALS: O2SAT 98
[2025-02-28 08:12] VITALS: BP 122/72; PULSE 108; RESP 18; TEMP 36.4; O2SAT 98
== END 2025-02-28 08:13 | disposition home or self-care (01) ==
LOC: ER 03:32
DX: Z00.8 Encounter for other general examination (principal); F12.90 Cannabis use, unspecified, uncomplicated; F10.90 Alcohol use, unspecified, uncomplicated; J45.909 Unspecified asthma, uncomplicated; Y90.9 Presence of alcohol in blood, level not specified
CPT/HCPCS: 99281; 99282

== ENCOUNTER 2025-04-24 04:08 | Emergency (ER) | payer MEDICAID ==
[~2025-04-24] VITALS: Ht 177.8 cm; Wt 98.0 kg
[2025-04-24 04:12] VITALS: BP 127/90; PULSE 90; RESP 18; TEMP 37; O2SAT 97
[2025-04-24] MEDS ORDERED: TOPUD MT (06:56)
[2025-04-24] MEDS: CHLORDIAZEPOXIDE 25MG CAPSULE PO ONE (07:08)
[2025-04-24] MEDS: ACETAMINOPHEN 325MG TABLET PO ONE (07:09)
[2025-04-25] MEDS ORDERED: LIDO-53 TP (03:24)
[2025-04-25] MEDS ORDERED: NAPR-1176 MT (03:24)
== END 2025-04-24 08:04 | disposition home or self-care (01) ==
LOC: ER 04:08
DX: M79.18 Myalgia, other site (principal); F10.20 Alcohol dependence, uncomplicated; J45.909 Unspecified asthma, uncomplicated; F12.90 Cannabis use, unspecified, uncomplicated
CPT/HCPCS: 99283

== ENCOUNTER 2025-04-25 01:33 | Emergency (ER) | payer MEDICAID ==
[~2025-04-25] VITALS: Ht 170.2 cm; Wt 77.0 kg
[~2025-04-25 01:33] MED LIST changes: +TOPUD MT
[2025-04-25 01:54] VITALS: O2SAT 99
[2025-04-25] MEDS ORDERED: LIDO-53 TP (03:24)
[2025-04-25] MEDS ORDERED: NAPR-1176 MT (03:24)
[2025-04-25] MEDS: KETOROLAC 15MG/ML VIAL IM ONE (03:38)
[2025-04-25 03:41] VITALS: BP 124/71; PULSE 88; RESP 17; TEMP 36.8; O2SAT 96
== END 2025-04-25 04:00 | disposition home or self-care (01) ==
LOC: ER 01:33
DX: M25.572 Pain in left ankle and joints of left foot (principal); M54.2 Cervicalgia; J45.909 Unspecified asthma, uncomplicated; F10.90 Alcohol use, unspecified, uncomplicated; F12.90 Cannabis use, unspecified, uncomplicated; Z79.1 Long term (current) use of non-steroidal anti-inflammatories (NSAID); Y90.9 Presence of alcohol in blood, level not specified
CPT/HCPCS: 96372; 99283; J1885; Z7610

== ENCOUNTER 2025-04-28 15:13 | Emergency (ER) | payer MEDICAID ==
[~2025-04-28] VITALS: Ht 175.3 cm; Wt 66.0 kg
[~2025-04-28 15:13] MED LIST changes: +LIDO-53 TP; +NAPR-1176 MT
[2025-04-28 15:28] VITALS: O2SAT 99
[2025-04-28 15:32] VITALS: BP 176/116; PULSE 94; RESP 18; TEMP 36.8; O2SAT 97
[2025-04-28] MEDS: LORAZEPAM 1MG TABLET PO STA (16:16)
[2025-04-28] MEDS: HYDROXYZINE 25MG TABLET PO STA (16:16)
[2025-04-28 16:56] LABS: BASOPHILS % 1.3 % (0.0-2.0); EOSINOPHILS % 0.5 % (0.0-5.0); HEMATOCRIT. 38.6 % (42.0-52.0); HEMOGLOBIN. 12.9 g/dL (14.0-18.0); LYMPHOCYTES % 7.9 % (20.0-50.0); MEAN PLATELET VOLUME 8.7 fl (7.4-10.4); MONOCYTES % 9.4 % (2.0-8.0); NEUTROPHILS % 80.9 % (40.0-76.0); PLATELET 183 x1000/uL (130-400); RED BLOOD CELL COUNT 3.96 mill/uL (4.7-6.1); RED CELL DISTRIBUTION WIDTH 15.5 % (11.6-14.6)
[2025-04-28 17:08] LABS: CREATININE 0.9 mg/dL (0.6-1.3); UREA NITROGEN BLOOD 11 mg/dL (9-23)
[2025-04-28 17:10] LABS: ASPARTATE AMINOTRANSFERASE 32 IU/L (<34); BILIRUBIN DIRECT 0.1 mg/dL (<=3.0); BILIRUBIN TOTAL 0.4 mg/dL (0.1-1.0); PROTEIN TOTAL 7.4 g/dL (6.0-8.3)
[2025-04-28] MEDS ORDERED: HYDR50TA55 MT (17:46)
== END 2025-04-28 17:58 | disposition home or self-care (01) ==
LOC: ER 15:13
DX: F10.239 Alcohol dependence with withdrawal, unspecified (principal); Z79.899 Other long term (current) drug therapy; Y90.0 Blood alcohol level of less than 20 mg/100 ml
CPT/HCPCS: 36415; 80048; 80076; 80320; 83735; 85025; 99283; G0480

== ENCOUNTER 2025-04-28 18:11 | Emergency (ER) | payer MEDICAID ==
[~2025-04-28] VITALS: Ht 177.8 cm; Wt 75.0 kg
[~2025-04-28 18:11] MED LIST changes: -CEPH500C2 MT; -DIVA-156 MT; +HYDR50TA55 MT; -IBUP-2028 MT; -LIDO-53 TP; -NAPR-1176 MT; -TOPUD MT; -TOPUD PO
[2025-04-28 18:22] VITALS: TEMP 36.7; O2SAT 99
[2025-04-28 20:02] VITALS: BP 145/95; PULSE 92; RESP 18; O2SAT 99
== END 2025-04-28 20:07 | disposition home or self-care (01) ==
LOC: ER 18:11
DX: F10.239 Alcohol dependence with withdrawal, unspecified (principal); F41.9 Anxiety disorder, unspecified; F12.90 Cannabis use, unspecified, uncomplicated; Y90.9 Presence of alcohol in blood, level not specified
CPT/HCPCS: 99282

== ENCOUNTER 2025-04-28 20:39 | Emergency (ER) | payer MEDICAID ==
[~2025-04-28] VITALS: Ht 170.2 cm; Wt 71.4 kg
[~2025-04-28 20:39] MED LIST changes: +CEPH500C2 MT; +DIVA-156 MT; +IBUP-2028 MT; +LIDO-53 TP; +NAPR-1176 MT; +TOPUD MT; +TOPUD PO
[2025-04-28 20:48] VITALS: O2SAT 98
[2025-04-28] MEDS ORDERED: LIDOCAINE 5% PATCH TOP SCH (21:00)
[2025-04-28] MEDS: ACETAMINOPHEN 325MG TABLET PO ONE (21:00)
[2025-04-29] MEDS: ACETAMINOPHEN 325MG TABLET PO NR (01:51)
[2025-04-29] MEDS: LIDOCAINE 5% PATCH TOP SCH (01:54)
[2025-04-29 03:40] VITALS: BP 121/81; PULSE 105; RESP 19; TEMP 37.3; O2SAT 97
== END 2025-04-29 03:42 | disposition home or self-care (01) ==
LOC: ER 20:39
DX: M54.2 Cervicalgia (principal); F10.90 Alcohol use, unspecified, uncomplicated; F12.90 Cannabis use, unspecified, uncomplicated; Y90.9 Presence of alcohol in blood, level not specified
CPT/HCPCS: 99283

== ENCOUNTER 2025-06-28 07:46 | Emergency (ER) | payer MEDICAID ==
[~2025-06-28] VITALS: Ht 177.8 cm; Wt 83.0 kg
[~2025-06-28 07:46] MED LIST changes: -CEPH500C2 MT; -DIVA-156 MT; -IBUP-2028 MT; -LIDO-53 TP; -NAPR-1176 MT; -TOPUD MT; -TOPUD PO
[2025-06-28 07:49] VITALS: O2SAT 96
[2025-06-28] MEDS ORDERED: CELE-116 MT (10:45)
[2025-06-28] MEDS: ACETAMINOPHEN 325MG TABLET PO ONE (11:17)
[2025-06-28] MEDS: KETOROLAC 30MG/ML VIAL IM ONE (11:17)
[2025-06-28 11:29] VITALS: BP 130/78; PULSE 97; RESP 16; TEMP 36.7; O2SAT 98
== END 2025-06-28 12:22 | disposition home or self-care (01) ==
LOC: ER 08:00
DX: G89.29 Other chronic pain (principal); M54.2 Cervicalgia; M54.9 Dorsalgia, unspecified; E03.9 Hypothyroidism, unspecified; F10.20 Alcohol dependence, uncomplicated; F20.9 Schizophrenia, unspecified; Y90.9 Presence of alcohol in blood, level not specified
CPT/HCPCS: 99283; 96372; J1885

== ENCOUNTER 2025-06-28 14:31 | Emergency (ER) | payer MEDICAID ==
[~2025-06-28] VITALS: Ht 177.8 cm; Wt 80.0 kg
[~2025-06-28 14:31] MED LIST changes: +CELE-116 MT
[2025-06-28 14:37] VITALS: O2SAT 98
[2025-06-28] MEDS: LIDOCAINE 5% PATCH TOP SCH (17:53)
[2025-06-28 18:30] VITALS: TEMP 98.6
[2025-06-28] MEDS: CHLORDIAZEPOXIDE 10MG CAPSULE PO ONE (18:30)
[2025-06-28] MEDS: ACETAMINOPHEN 500MG TABLET PO ONE (18:30)
[2025-06-28 19:16] VITALS: BP 136/78; PULSE 88; RESP 16; O2SAT 99
== END 2025-06-28 18:30 | disposition home or self-care (01) ==
LOC: ER 14:31
DX: M79.10 Myalgia, unspecified site (principal); F20.9 Schizophrenia, unspecified; E03.9 Hypothyroidism, unspecified; I10 Essential (primary) hypertension; Z59.00 Homelessness unspecified
CPT/HCPCS: 99284

== ENCOUNTER 2025-06-28 22:39 | Emergency (ER) | payer MEDICAID ==
[~2025-06-28] VITALS: Ht 175.3 cm; Wt 69.0 kg
[2025-06-28 22:41] VITALS: O2SAT 95
[2025-06-29 06:06] LABS: BASOPHILS % 1.2 % (0.0-2.0); EOSINOPHILS % 5.4 % (0.0-5.0); HEMATOCRIT. 38.5 % (42.0-52.0); HEMOGLOBIN. 12.6 g/dL (14.0-18.0); LYMPHOCYTES % 16.0 % (20.0-50.0); MEAN PLATELET VOLUME 9.1 fl (7.4-10.4); MONOCYTES % 13.2 % (2.0-8.0); NEUTROPHILS % 64.2 % (40.0-76.0); PLATELET 133 x1000/uL (130-400); RED BLOOD CELL COUNT 3.93 mill/uL (4.7-6.1); RED CELL DISTRIBUTION WIDTH 15.7 % (11.6-14.6)
[2025-06-29 06:22] LABS: CREATININE 0.7 mg/dL (0.6-1.3); ETHANOL BLOOD < 10 mg/dL (<10); UREA NITROGEN BLOOD 13 mg/dL (9-23)
[2025-06-29 06:24] LABS: ASPARTATE AMINOTRANSFERASE 37 IU/L (<34); BILIRUBIN DIRECT 0.3 mg/dL (<=3.0); BILIRUBIN TOTAL 1.1 mg/dL (0.1-1.0); PROTEIN TOTAL 7.1 g/dL (6.0-8.3)
[2025-06-29] MEDS: LORAZEPAM 2MG/ML UD SYRINGE IV NR (06:27)
[2025-06-29] MEDS: FOLIC ACID 1 MG, THIAMINE HCL 100 MG, MVI, ADULT NO.1 10 ML in DEXTROSE 5% WATER 1,000 ML IV ONE (07:01)
[2025-06-29 10:32] VITALS: BP 130/80; PULSE 84; RESP 15; TEMP 36.7; O2SAT 95
== END 2025-06-29 11:34 | disposition left against medical advice (07) ==
LOC: ER 22:50 → EDBEDREQ 06-29 07:48 → EDBEDREQTM 06-29 07:48 → ER 06-29 11:34 → ENRESERV 06-29 11:57 → CANBEDREQ 06-29 12:15
DX: F10.239 Alcohol dependence with withdrawal, unspecified (principal); F20.9 Schizophrenia, unspecified; E03.9 Hypothyroidism, unspecified; Y90.9 Presence of alcohol in blood, level not specified
CPT/HCPCS: 99284; 80076; 80048; 80320; 85025; 36415; 96365; 96366; 96375; J3490 ×2; J2060; J3411; J7070; 96374; G0480

== ENCOUNTER 2025-06-30 21:19 | Emergency (ER) | payer MEDICAID ==
[~2025-06-30] VITALS: Ht 175.3 cm; Wt 100.0 kg
[2025-06-30 21:49] VITALS: O2SAT 98
[2025-07-01 00:46] VITALS: BP 130/84; PULSE 98; RESP 18; TEMP 36.9; O2SAT 96
[2025-07-02] MEDS ORDERED: IBUP-1455 MT (03:49)
[2025-07-02] MEDS ORDERED: SULF1TAB48 MT (03:49)
[2025-07-02] MEDS ORDERED: CEPH500T MT (03:49)
== END 2025-07-01 03:22 | disposition home or self-care (01) ==
LOC: ER 21:19
DX: F10.229 Alcohol dependence with intoxication, unspecified (principal); Y90.9 Presence of alcohol in blood, level not specified
CPT/HCPCS: 99283

== ENCOUNTER 2025-07-01 18:25 | Emergency (ER) | payer MEDICAID ==
[~2025-07-01] VITALS: Ht 167.6 cm; Wt 82.0 kg
[2025-07-01 18:26] VITALS: BP 115/81; PULSE 89; RESP 15; TEMP 98.5; O2SAT 100
[2025-07-02] MEDS ORDERED: IBUP-1455 MT (03:49)
[2025-07-02] MEDS ORDERED: CEPH500T MT (03:49)
[2025-07-02] MEDS ORDERED: SULF1TAB48 MT (03:49)
== END 2025-07-01 21:23 | disposition left against medical advice (07) ==
LOC: ER 18:25
DX: R22.2 Localized swelling, mass and lump, trunk (principal); Z53.21 Procedure and treatment not carried out due to patient leaving prior to being seen by health care provider
CPT/HCPCS: 99281

== ENCOUNTER 2025-07-02 00:05 | Emergency (ER) | payer MEDICAID ==
[~2025-07-02] VITALS: Ht 170.2 cm; Wt 69.0 kg
[2025-07-02 00:23] VITALS: O2SAT 100
[2025-07-02 00:37] VITALS: TEMP 36.9; O2SAT 95
[2025-07-02 02:47] VITALS: BP 134/95; PULSE 92; RESP 18
[2025-07-02] MEDS: IBUPROFEN 600MG TABLET PO ONE (02:47)
[2025-07-02] MEDS ORDERED: CEPH500T MT (03:49)
[2025-07-02] MEDS ORDERED: SULF1TAB48 MT (03:49)
[2025-07-02] MEDS ORDERED: IBUP-1455 MT (03:49)
== END 2025-07-02 04:09 | disposition home or self-care (01) ==
LOC: ER 00:05
DX: L02.411 Cutaneous abscess of right axilla (principal); E03.9 Hypothyroidism, unspecified; Z79.899 Other long term (current) drug therapy
CPT/HCPCS: 99283

== ENCOUNTER 2025-07-02 17:28 | Emergency (ER) | payer MEDICAID ==
[~2025-07-02 17:28] MED LIST changes: +CEPH500T MT; +IBUP-1455 MT; +SULF1TAB48 MT
[2025-07-02 17:33] VITALS: PULSE 98; RESP 18; O2SAT 99
== END 2025-07-02 18:25 | disposition left against medical advice (07) ==
LOC: ER 17:28
DX: Z00.00 Encounter for general adult medical examination without abnormal findings (principal)
CPT/HCPCS: 99281

== ENCOUNTER 2025-07-19 19:46 | Emergency (ER) | payer MEDICAID, OTHER ==
[~2025-07-19] VITALS: Ht 165.1 cm; Wt 68.0 kg
[2025-07-19 19:52] VITALS: BP 106/62; PULSE 102; RESP 18; TEMP 98.5; O2SAT 98
== END 2025-07-19 21:47 | disposition home or self-care (01) ==
LOC: ER 19:46
DX: M79.10 Myalgia, unspecified site (principal); R68.83 Chills (without fever); I10 Essential (primary) hypertension
CPT/HCPCS: 99281; 99283